=== PATIENT | male | born 1940 | race Caucasian/White ===

== ENCOUNTER 2021-01-31 06:00 | Outpatient (RCR) | payer MEDICARE, SELFPAY | END 2021-02-01 23:59 | disposition home or self-care (01) | LOC: GPT 06:00 | PROVIDERS: PCP Family Medicine; Visit Provider Family Medicine | DX: S72.001D Fracture of unspecified part of neck of right femur, subsequent encounter for closed fracture with routine healing (principal); E78.5 Hyperlipidemia, unspecified; X58.XXXD Exposure to other specified factors, subsequent encounter; Z85.038 Personal history of other malignant neoplasm of large intestine | CPT/HCPCS: 97110; 97162 ==

== ENCOUNTER 2021-02-02 06:00 | Outpatient (RCR) | payer MEDICARE, SELFPAY | END 2021-03-04 23:59 | disposition home or self-care (01) | LOC: GPT 06:00 | PROVIDERS: PCP Family Medicine; Visit Provider Family Medicine | DX: S72.011A Unspecified intracapsular fracture of right femur, initial encounter for closed fracture (principal); X58.XXXA Exposure to other specified factors, initial encounter; E78.5 Hyperlipidemia, unspecified; Z85.038 Personal history of other malignant neoplasm of large intestine | CPT/HCPCS: 97110; 97116 ==

== ENCOUNTER → 2021-09-14 17:12 | Outpatient (BNVA) | payer MEDICARE, SELFPAY | PROVIDERS: PCP Family Medicine; Visit Provider Nurse Practitioner Family | DX: E78.5 Hyperlipidemia, unspecified (principal); E61.1 Iron deficiency; E55.9 Vitamin D deficiency, unspecified | CPT/HCPCS: 80053; 80061; 82306; 82728; 83550; 85025 ==